=== PATIENT | male | born 1985 | race Two or more races ===

== ENCOUNTER 2019-08-21 13:15 | Emergency (ER) | payer OTHER ==
[~2019-08-21] VITALS: Ht 180.3 cm; Wt 86.0 kg
[2019-08-21] MEDS: PENICILLIN V POTASSIUM 500 MG TABLET PO ONE (14:30)
[2019-08-21] MEDS: IBUPROFEN 600 MG TABLET PO ONE (14:30)
[2019-08-21 16:30] VITALS: BP 134/84
== END 2019-08-21 17:17 | disposition home or self-care (01) ==
LOC: EMS 13:20
DX: Z03.818 Encounter for observation for suspected exposure to other biological agents ruled out (principal); K08.89 Other specified disorders of teeth and supporting structures